=== PATIENT | female | born 1990 | race Caucasian/White ===

== ENCOUNTER 2023-03-18 06:55 | Inpatient (IN) | payer BC, OTHER ==
[2023-03-18] MEDS ORDERED: Ondansetron PF 4 MG/2 ML Vial IVP PRN ×2 (07:26→17:38)
[2023-03-18] MEDS ORDERED: Ibuprofen 800 MG TAB PO PRN (07:26)
[2023-03-18] MEDS ORDERED: Methylergonovine 0.2 MG/ML VIAL IM PRN ×2 (07:26→17:38)
[2023-03-18] MEDS ORDERED: Lidocaine 1% (PF) 30 ML VIAL SC PRN (07:26)
[2023-03-18] MEDS ORDERED: Acetaminophen 500 MG TAB PO PRN (07:26)
[2023-03-18] MEDS ORDERED: hydrALAZINE 20 MG/ML VIAL SLOW IVP PRN ×2 (07:26→17:38)
[2023-03-18] MEDS ORDERED: Promethazine HCl 25 MG/ML VIAL IM PRN ×2 (07:26→17:38)
[2023-03-18] MEDS ORDERED: Carboprost 250 MCG/ML AMP IM PRN (07:26)
[2023-03-18] MEDS ORDERED: Misoprostol 200 MCG TAB PR PRN (07:26)
[2023-03-18] MEDS ORDERED: Lactated Ringer's 1,000 ML IV SCH (07:30)
[2023-03-18] MEDS ORDERED: NS w/ Oxytocin 30 units 500 ML IV SCH ×2 (07:30→17:38)
[2023-03-18] MEDS ORDERED: Fentanyl 2 mcg/Bup 0.1% Cadd 100 ML ONE (07:34)
[2023-03-18 07:45] LABS: Hemoglobin 13.5 g/dL (12.0-15.5); Mean Corpuscular HGB CONC 34.6 g/dL (32.0-36.0); Mean Corpuscular Hemoglobin 30.6 pg (27.0-33.0); Mean Corpuscular Volume 88.4 fl (81.6-98.3); Mean Platelet Volume 10.5 fl (7.4-10.4); Platelet Count 308 10x3/uL (150-450); Red Blood Cell (RBC) Count 4.41 10x6/uL (3.90-5.03); White Blood Cell (WBC) Count 14.3 10x3/uL (3.5-10.5)
[2023-03-18] MEDS ORDERED: Bupivacaine 0.25% HCL 30 ML VIAL ONE (08:00)
[2023-03-18 08:12] LABS: HBSAg Index 0.12 S/CO (0-0.99); Hep B Surf Ag - L&D Non-Reactive S/CO (NonReactive)
[2023-03-18 08:13] LABS: Syphilis Antibody Nonreactive (Nonreactive); Syphilis Antibody Index 0.04 S/CO (<1.00 Non-Reactive)
[2023-03-18] MEDS ORDERED: Varicella virus, LIVE 0.5 ML VIAL SC ONE (17:38)
[2023-03-18] MEDS ORDERED: Measles/Mumps/Rubella 10 MCG/0.5 ML VIAL SC ONE (17:38)
[2023-03-18] MEDS ORDERED: Milk Of Magnesia 30 ML UDCUP PO PRN (17:38)
[2023-03-18] MEDS ORDERED: Boostrix 0.5 ML (Tdap) VIAL (>/=7 yrs of age) IM ONE (17:38)
[2023-03-18] MEDS ORDERED: Preparation H Ointment 28 GM TUBE PR PRN (17:38)
[2023-03-18] MEDS ORDERED: Lanolin Ointment 7 GM TUBE TOP PRN (17:38)
[2023-03-18] MEDS ORDERED: Bisacodyl 10 MG SUPP PR PRN (17:38)
[2023-03-18] MEDS ORDERED: HYDROcodone/Acetaminophen 5/325 mg Tablet PO PRN (17:38)
[2023-03-18] MEDS ORDERED: diphenhydrAMINE 25 MG CAP PO PRN (17:38)
[2023-03-18] MEDS ORDERED: Benzocaine-Menthol 82.5 ML CAN TOP PRN (17:38)
[2023-03-18] MEDS ORDERED: Misoprostol 200 MCG TAB VAG PRN (17:38)
[2023-03-18] MEDS ORDERED: Zolpidem Tartrate 5 MG TAB PO PRN (17:38)
[2023-03-18 17:58] VITALS: BMI 29.6
[2023-03-18] MEDS: Docusate 100 MG CAP PO SCH (21:05)
[2023-03-18] MEDS: Ibuprofen 800 MG TAB PO SCH (21:05)
[2023-03-19] MEDS: Ibuprofen 800 MG TAB PO SCH ×3 (05:20→21:34)
[2023-03-19 07:24] LABS: Hemoglobin 11.8 g/dL (12.0-15.5); Mean Corpuscular HGB CONC 33.9 g/dL (32.0-36.0); Mean Corpuscular Hemoglobin 30.7 pg (27.0-33.0); Mean Corpuscular Volume 90.6 fl (81.6-98.3); Mean Platelet Volume 10.4 fl (7.4-10.4); Platelet Count 251 10x3/uL (150-450); RBC Distribution Width 13.2 % (11.5-14.5); Red Blood Cell (RBC) Count 3.84 10x6/uL (3.90-5.03)
[2023-03-19] MEDS: Prenatal Vitamin 1 TAB PO SCH (08:46)
[2023-03-19] MEDS: Docusate 100 MG CAP PO SCH ×2 (08:46→21:34)
[2023-03-19] MEDS: Ferrous Sulfate 325 MG TAB PO SCH ×2 (11:42→19:36)
[2023-03-19] MEDS: HYDROcodone/Acetaminophen 5/325 mg Tablet PO PRN (17:55)
[2023-03-19 20:27] VITALS: TEMP 97.9
[2023-03-20] MEDS: HYDROcodone/Acetaminophen 5/325 mg Tablet PO PRN ×3 (00:11→11:49)
[2023-03-20] MEDS: Ibuprofen 800 MG TAB PO SCH ×2 (04:27→14:32)
[2023-03-20 07:59] VITALS: BP 113/69
[2023-03-20] MEDS: Ferrous Sulfate 325 MG TAB PO SCH (08:35)
[2023-03-20] MEDS: Docusate 100 MG CAP PO SCH (08:37)
[2023-03-20] MEDS: Prenatal Vitamin 1 TAB PO SCH (08:37)
== END 2023-03-20 15:50 | disposition home or self-care (01) | DRG 807 ==
LOC: CSHLD/OP 06:55 → CSHLD 07:14 → CSHPP 17:30
PROVIDERS: ADMIT Obstetrics & Gynecology; ATTEND Obstetrics & Gynecology
PROC: 10E0XZZ Delivery of Products of Conception, External Approach (ICD-10-PCS; principal; 2023-03-18)
PROC: 0UQMXZZ Repair Vulva, External Approach (ICD-10-PCS; 2023-03-18)
DX: O42.02 Full-term premature rupture of membranes, onset of labor within 24 hours of rupture (principal); Z37.0 Single live birth; E03.9 Hypothyroidism, unspecified; O99.284 Endocrine, nutritional and metabolic diseases complicating childbirth; Z79.890 Hormone replacement therapy; Z3A.38 38 weeks gestation of pregnancy; O71.82 Other specified trauma to perineum and vulva
CPT/HCPCS: 36415; 51702; 85027; 86780; 86850; 86900; 86901; 87340; 99285; S0020